=== PATIENT | male | born 1970 | race Caucasian/White ===

== ENCOUNTER 2022-04-07 06:57 | Observation (INO) ==
[~2022-04-07 06:57] MED LIST: Buffered Lidocaine 1% SYRIN 1 ml INTRADERM ONE; Lactated Ringers 1000 ml BAG 1,000 ML IV SCH
[2022-04-07] MEDS ORDERED: ceFAZolin 2 GM PREMIX 2 GM/50 ML BAG ONE (07:11)
[2022-04-07] MEDS ORDERED: Naloxone 0.4 mg VIAL 0.4 mg/ml 1 ml VIAL IV PRN (07:57)
[2022-04-07] MEDS ORDERED: HYDROmorphone 1 MG/1 ML SYRINGE IV PRN (07:57)
[2022-04-07] MEDS ORDERED: Prochlorperazine 5 mg/ml 2 ml VIAL (10 mg) IV PRN (07:57)
[2022-04-07] MEDS ORDERED: ROPIVACAINE 5 MG/ML 30 ML BTL (0.5%) ONE (08:16)
[2022-04-07] MEDS ORDERED: fentaNYL 100 mcg/2 ml 50 MCG/ML VIAL ONE ×2 (08:17→09:13)
[2022-04-07] MEDS ORDERED: Ropivacaine 5 MG/ML 20 ML VIAL 0.5% (100 MG) ONE (08:45)
[2022-04-07] MEDS ORDERED: Lidocaine 2% PF 5 ML VIAL ONE ×2 (09:19→09:50)
[2022-04-07] MEDS ORDERED: Ondansetron 4 mg VIAL 2 MG/ML 2 ml VIAL IV PRN (10:24)
[2022-04-07] MEDS ORDERED: Ondansetron ODT 4 mg TAB 4 MG TAB PO PRN (10:24)
[2022-04-07] MEDS ORDERED: Lactulose 30 ml UDC PO PRN (10:24)
[2022-04-07] MEDS ORDERED: Morphine 2 MG/ML SYRINGE IV PRN (10:24)
[2022-04-07] MEDS ORDERED: Magnesium Hydroxide LIQ 30 ML UDC PO PRN (10:24)
[2022-04-07] MEDS ORDERED: Phenylephrine 40 mcg/mL 10mL (400mcg) SYRINGE ONE (10:41)
[2022-04-07] MEDS ORDERED: Ondansetron 4 mg VIAL 2 MG/ML 2 ml VIAL ONE (10:52)
[2022-04-07] MEDS ORDERED: Dexamethasone IV 4 MG/ML VIAL 1 ml VIAL ONE (10:52)
[2022-04-07] MEDS ORDERED: ceFAZolin 1 GM ADVAN 1 GM in NS 0.9% 50 ML 50 ML IVPB SCH (11:00)
[2022-04-07] MEDS ORDERED: Sodium Citrate/Citric Acid LIQ 15 ML UDC ONE (12:55)
[2022-04-07] MEDS ORDERED: Sodium Citrate/Citric Acid LIQ 15 ML UDC PO ONE (12:57)
[2022-04-07] MEDS: Lactated Ringers 1000 ml BAG 1,000 ML IV SCH (15:28)
[2022-04-07] MEDS ORDERED: Calcium Carb (TUMS) 500 mg CHEW TAB PO PRN (15:33)
[2022-04-07 17:03] LABS: High Sensitivity Troponin 1 Hr 6 pg/mL (<20)
[2022-04-07] MEDS: ceFAZolin 1 GM ADVAN 1 GM in NS 0.9% 50 ML 50 ML IVPB SCH (18:25)
[2022-04-07] MEDS: Magnesium Hydroxide LIQ 30 ML UDC PO SCH (21:24)
[2022-04-08] MEDS: ceFAZolin 1 GM ADVAN 1 GM in NS 0.9% 50 ML 50 ML IVPB SCH ×2 (01:23→09:26)
[2022-04-08] MEDS: Lactated Ringers 1000 ml BAG 1,000 ML IV SCH (01:24)
[2022-04-08 06:16] LABS: Hematocrit 39 % (42-52); Hemoglobin 13.4 g/dL (14.0-18.0); Mean Platelet Volume 8.6 fL (7.4-10.4); Platelet Count 185 10^3/uL (150-450)
[2022-04-08 06:41] LABS: Calcium 8.5 mg/dL (8.6-10.3); Potassium 4.3 mmol/L (3.5-5.0)
[2022-04-08 06:46] LABS: eGFR CKD-EPI 93.3 (>60)
[2022-04-08] MEDS: Magnesium Hydroxide LIQ 30 ML UDC PO SCH (08:11)
[2022-04-08] MEDS ORDERED: Vitamin THERAPEUTIC TAB PO SCH (09:00)
[2022-04-08 09:50] VITALS: BP 136/76
== END 2022-04-08 10:58 | disposition home or self-care (01) ==
LOC: SSU 06:57 → OR 06:57 → EDSTATUS 08:45 → SSU 17:37
PROVIDERS: ADMIT Orthopaedic Surgery Adult Reconstructive Orthopaedic Surgery; ATTEND Orthopaedic Surgery Adult Reconstructive Orthopaedic Surgery

== ENCOUNTER 2022-08-03 08:05 | Observation (INO) ==
[~2022-08-03 08:05] MED LIST changes: -Buffered Lidocaine 1% SYRIN 1 ml INTRADERM ONE; -Lactated Ringers 1000 ml BAG 1,000 ML IV SCH; +NS 0.9% 1000 ml BAG 1,000 ML IV ONE
[2022-08-03] MEDS ORDERED: VERAPAMIL 2.5 MG/ML 2 ML VIAL ** 5 mg/2 ml ONE (09:21)
[2022-08-03] MEDS ORDERED: Midazolam 5 mg/5 ml VIAL 1 mg/ml 5 ml VIAL (5 mg) ONE (09:21)
[2022-08-03] MEDS ORDERED: Heparin 2 UNITS/ML 1000 mls 2,000 ML IV ONE (09:21)
[2022-08-03] MEDS ORDERED: fentaNYL 100 mcg/2 ml 50 MCG/ML VIAL ONE (09:21)
[2022-08-03] MEDS ORDERED: Heparin 1,000 UNIT/ML 10 ml (10,000 UNITS) CATHLAB/DIALYSIS ONE (09:21)
[2022-08-03] MEDS ORDERED: nitroGLYCERIN DRIP 25,000 MCG/250 ML BTL ONE (09:22)
[2022-08-03] MEDS ORDERED: Lidocaine 1% MPF 5 ML VIAL ONE (09:22)
[2022-08-03] MEDS ORDERED: Midazolam 10 mg/10 ml VIAL 1 mg/ml 10 ml VIAL (10 mg) IV SLOW PU ONE (09:24)
[2022-08-03] MEDS ORDERED: fentaNYL 100 mcg/2 ml 50 MCG/ML VIAL IV SLOW PU ONE (09:24)
[2022-08-03] MEDS ORDERED: Bivalirudin 250 MG VIAL ONE ×2 (10:04→10:31)
[2022-08-03] MEDS ORDERED: Atropine 0.1 MG/ML 10 ml SYR (1 mg) ONE (10:20)
[2022-08-03] MEDS ORDERED: Dextrose 50% Syringe 50 ml 25 GM/50 ML SYRINGE IV PUSH PRN (11:25)
[2022-08-03] MEDS ORDERED: NS 0.9% 1000 ml BAG 1,000 ML IV SCH (11:30)
[2022-08-03 13:15] LABS: Hematocrit 45 % (42-52); Hemoglobin 15.4 g/dL (14.0-18.0); Mean Corpuscular HGB Conc 34 g/dL (31-36); Mean Corpuscular Hemoglobin 29 pg (27-31); Mean Corpuscular Volume 84 fL (80-94); Mean Platelet Volume 7.5 fL (7.4-10.4); Platelet Count 185 10^3/uL (150-450); Red Blood Count 5.31 10^6 /uL (4.18-5.48); Red Cell Distribution Width 15 % (10-15); White Blood Count 8.3 10^3/uL (3.5-10.8)
[2022-08-03 13:53] LABS: Albumin 3.4 g/dL (3.2-5.2); Albumin/Globulin Ratio 1.4 (1-3); Calcium 7.9 mg/dL (8.6-10.3); Creatinine, Serum 0.67 mg/dL (0.67-1.17); Globulin 2.5 g/dL (2-4); HDL Cholesterol 30.7 mg/dL; Magnesium 1.8 mg/dL (1.9-2.7); Potassium 3.7 mmol/L (3.5-5.0); Total Bilirubin 0.6 mg/dL (0.2-1.0); Total Protein 5.9 g/dL (6.4-8.9); eGFR CKD-EPI 111.6 (>60)
[2022-08-03 14:18] LABS: Free T4 0.77 ng/dL (0.61-1.12); TSH Ultra Thyroid Stim Horm 0.98 mcIU/mL (0.34-5.60)
[2022-08-04 06:05] LABS: ABS Basophils 0.1 10^3/ul (0-0.2); ABS Eosinophils 0.3 10^3/ul (0-0.6); ABS Lymphocytes 2.2 10^3/ul (1.0-4.8); ABS Monocytes 0.8 10^3/ul (0-0.8); ABS Neutrophils 6.6 10^3/ul (1.5-7.7); Eosinophil % 3.4 %; Hematocrit 48 % (42-52); Hemoglobin 16.4 g/dL (14.0-18.0); Lymphocyte % 21.6 %; Mean Corpuscular HGB Conc 34 g/dL (31-36); Mean Corpuscular Hemoglobin 29 pg (27-31); Mean Corpuscular Volume 85 fL (80-94); Mean Platelet Volume 7.7 fL (7.4-10.4); Nucleated Red Blood Cells % 0.1; Platelet Count 196 10^3/uL (150-450); Red Cell Distribution Width 15 % (10-15); White Blood Count 9.9 10^3/uL (3.5-10.8)
[2022-08-04 06:35] LABS: Calcium 9.1 mg/dL (8.6-10.3); Creatinine, Serum 0.79 mg/dL (0.67-1.17); Potassium 3.8 mmol/L (3.5-5.0); eGFR CKD-EPI 106.2 (>60)
[2022-08-04] MEDS ORDERED: Potassium Chlor 20 meq TAB.ER PO ONE (06:52)
[2022-08-04 07:19] LABS: Magnesium 2.1 mg/dL (1.9-2.7)
[2022-08-04 08:50] VITALS: BP 127/80
[2022-08-04] MEDS ORDERED: Influenza vaccine *QUAD* *2022-23* 0.5 ML SYRINGE IM ONE (09:00)
[2022-08-04] MEDS ORDERED: Pneumococcal Vac 23-Polyvalent IM ONE (09:00)
== END 2022-08-04 10:00 | disposition home or self-care (01) ==
LOC: CHICATH 08:05 → ICU 11:18 → INTOOBSV 11:18
PROVIDERS: ADMIT Internal Medicine Critical Care Medicine; ATTEND Internal Medicine Critical Care Medicine

== ENCOUNTER 2023-09-22 20:15 | Observation (INO) ==
[2023-09-22 20:52] LABS: ABS Basophils 0.1 10^3/uL (0.0-0.1); ABS Eosinophils 0.2 10^3/uL (0.0-0.5); ABS Neutrophils 5.6 10^3/uL (1.5-7.6); ABS Nucleated RBC 0.01 10^3/ul; Eosinophil % 2.6 %; Hematocrit 45.4 % (38-53); Lymphocyte % 22.7 %; Mean Corpuscular Hemoglobin 30.2 pg (27-33); Mean Corpuscular Hgb Conc 35.2 g/dL (31-36); Mean Corpuscular Volume 85.9 fL (80-97); Mean Platelet Volume 7.4 fL (7.5-11.2); Nucleated Red Blood Cells % 0.1 %/100WBC (0.0-0.8); Platelet Count 194 10^3/uL (150-450); Red Blood Count 5.28 10^6/uL (4.06-5.63); Red Cell Distribution Width 13.9 % (12-17); White Blood Count 8.9 10^3/uL (3.6-10.2)
[2023-09-22 20:58] LABS: INR 1.05 (0.83-1.13)
[2023-09-22 21:14] LABS: Creatinine, Serum 0.86 mg/dL (0.67-1.17); Potassium 3.7 mmol/L (3.5-5.0)
[2023-09-22 21:15] LABS: Albumin/Globulin Ratio 1.4 (1-3); Calcium 9.2 mg/dL (8.6-10.3); Globulin 2.9 g/dL (2-4); Total Bilirubin 0.3 mg/dL (0.2-1.0); Total Protein 6.9 g/dL (6.4-8.9); eGFR CKD-EPI 102.9 (>60)
[2023-09-22 22:41] LABS: High Sensitivity Troponin 1 Hr 5 pg/mL (<20)
[2023-09-23] MEDS: Iodixanol (CONTRAST) 320 MG/ML 100 ML SDV IV ONE (00:42)
[2023-09-23] MEDS ORDERED: Dextrose 50% Syringe 50 ml 25 GM/50 ML SYRINGE IV PUSH PRN (06:03)
[2023-09-23] MEDS: Heparin 5000 UNITS/ML 1 mL VIAL SUBCUT SCH (06:12)
[2023-09-23 06:21] LABS: ABS Eosinophils 0.3 10^3/uL (0.0-0.5); ABS Lymphocytes 1.9 10^3/uL (1.0-4.8); ABS Monocytes 0.8 10^3/uL (0.0-1.1); ABS Neutrophils 3.6 10^3/uL (1.5-7.6); ABS Nucleated RBC 0.01 10^3/ul; Eosinophil % 3.9 %; Hematocrit 44.7 % (38-53); Hemoglobin 15.7 g/dL (13.2-16.3); Lymphocyte % 28.3 %; Mean Corpuscular Hemoglobin 30.3 pg (27-33); Mean Corpuscular Hgb Conc 35.2 g/dL (31-36); Mean Corpuscular Volume 86.1 fL (80-97); Mean Platelet Volume 7.5 fL (7.5-11.2); Nucleated Red Blood Cells % 0.1 %/100WBC (0.0-0.8); Platelet Count 182 10^3/uL (150-450); Red Blood Count 5.18 10^6/uL (4.06-5.63); Red Cell Distribution Width 13.9 % (12-17); White Blood Count 6.6 10^3/uL (3.6-10.2)
[2023-09-23 06:22] LABS: Hematocrit 44.6 % (38-53); Hemoglobin 15.8 g/dL (13.2-16.3); Mean Corpuscular Hemoglobin 30.5 pg (27-33); Mean Corpuscular Hgb Conc 35.4 g/dL (31-36); Mean Corpuscular Volume 86.2 fL (80-97); Mean Platelet Volume 7.6 fL (7.5-11.2); Platelet Count 180 10^3/uL (150-450); Red Blood Count 5.17 10^6/uL (4.06-5.63); Red Cell Distribution Width 14.2 % (12-17); White Blood Count 6.5 10^3/uL (3.6-10.2)
[2023-09-23 06:28] LABS: Activated Partial Thrombo Time 28.6 seconds (26.0-38.0); INR 1.06 (0.83-1.13)
[2023-09-23 06:51] LABS: Creatinine, Serum 0.81 mg/dL (0.67-1.17); Potassium 4.1 mmol/L (3.5-5.0); eGFR CKD-EPI 104.8 (>60)
[2023-09-23] MEDS ORDERED: Sulfur Hexaflouride MICROSPHR 25 MG VIAL ONE (08:57)
[2023-09-23] MEDS: Nitroglycerin 0.3 mg TAB SL PRN (12:45)
[2023-09-23] MEDS: Morphine 2 MG/ML SYRINGE IV ONE (13:07)
[2023-09-23] MEDS ORDERED: Ondansetron 4 mg VIAL 2 MG/ML 2 ml VIAL IV PRN (13:22)
[2023-09-23] MEDS: Famotidine IV 10 MG/ML 2 ml VIAL (20 mg) IV SLOW PU ONE (14:25)
[2023-09-23] MEDS: Pantoprazole VIAL 40 MG VIAL IV SCH (14:25)
[2023-09-23] MEDS: Al Hydrox/Mg Hydrox/Simet LIQ 30 ML UDC PO ONE (14:25)
[2023-09-23 14:35] LABS: High Sensitivity Troponin 1 Hr 5 pg/mL (<20)
[2023-09-23 16:36] LABS: C Reactive Protein 3.96 mg/L (<8.01); HDL Cholesterol 31.8 mg/dL
[2023-09-23] MEDS: Sucralfate 1 gm SUSP 1 GM/10 ML UDC PO SCH (17:25)
[2023-09-23 18:18] LABS: Erythrocyte Sed Rate 18 mm/Hr (0-19)
[2023-09-23] MEDS: Enoxaparin 40 MG/0.4 ML SYR SUBCUT SCH (20:59)
[2023-09-24 06:12] LABS: ABS Eosinophils 0.2 10^3/uL (0.0-0.5); ABS Lymphocytes 2.2 10^3/uL (1.0-4.8); ABS Monocytes 0.9 10^3/uL (0.0-1.1); ABS Neutrophils 3.8 10^3/uL (1.5-7.6); ABS Nucleated RBC 0.01 10^3/ul; Eosinophil % 3.3 %; Hematocrit 45.1 % (38-53); Hemoglobin 15.5 g/dL (13.2-16.3); Lymphocyte % 30.7 %; Mean Corpuscular Hemoglobin 29.8 pg (27-33); Mean Corpuscular Hgb Conc 34.4 g/dL (31-36); Mean Corpuscular Volume 86.7 fL (80-97); Nucleated Red Blood Cells % 0.2 %/100WBC (0.0-0.8); Platelet Count 188 10^3/uL (150-450); Red Cell Distribution Width 14.1 % (12-17); White Blood Count 7.1 10^3/uL (3.6-10.2)
[2023-09-24 06:49] LABS: Albumin 3.9 g/dL (3.2-5.2); Albumin/Globulin Ratio 1.4 (1-3); Calcium 8.9 mg/dL (8.6-10.3); Creatinine, Serum 0.89 mg/dL (0.67-1.17); Globulin 2.8 g/dL (2-4); Magnesium 2.3 mg/dL (1.9-2.7); Total Bilirubin 0.4 mg/dL (0.2-1.0); Total Protein 6.7 g/dL (6.4-8.9); eGFR CKD-EPI 101.8 (>60)
[2023-09-24] MEDS ORDERED: Aminophylline 25 MG/ML VIAL ONE (08:13)
[2023-09-24] MEDS ORDERED: Regadenoson 0.4 MG/5 ML SYRINGE ONE (08:13)
[2023-09-24] MEDS: Lactated Ringers 1000 ml BAG 1,000 ML IV ONE (12:03)
[2023-09-24] MEDS ORDERED: VERAPAMIL 2.5 MG/ML 2 ML VIAL ** 5 mg/2 ml ONE (12:06)
[2023-09-24] MEDS ORDERED: Heparin 1,000 UNIT/ML 10 ml (10,000 UNITS) CATHLAB/DIALYSIS ONE (12:06)
[2023-09-24] MEDS ORDERED: Heparin 2 UNITS/ML 1000 mls 2,000 ML IV ONE (12:06)
[2023-09-24] MEDS ORDERED: Iohexol 350 (CONTRAST) 200 ML MDV IV ONE (12:07)
[2023-09-24] MEDS: NS 0.9% 1000 ml BAG 1,000 ML IV SCH ×2 (12:07→14:36)
[2023-09-24] MEDS ORDERED: Lidocaine 1% MPF 5 ML VIAL ONE (12:07)
[2023-09-24] MEDS ORDERED: nitroGLYCERIN DRIP 25,000 MCG/250 ML BTL ONE (12:07)
[2023-09-24] MEDS ORDERED: Midazolam 5 mg/5 ml VIAL 1 mg/ml 5 ml VIAL (5 mg) ONE (13:38)
[2023-09-24] MEDS ORDERED: fentaNYL 100 mcg/2 ml 50 MCG/ML VIAL ONE (13:38)
[2023-09-24] MEDS ORDERED: Heparin 2 UNITS/ML 1000 mls 1,000 ML IV ONE (13:39)
[2023-09-25 05:32] LABS: ABS Eosinophils 0.2 10^3/uL (0.0-0.5); ABS Lymphocytes 2.4 10^3/uL (1.0-4.8); ABS Monocytes 0.8 10^3/uL (0.0-1.1); ABS Neutrophils 4.2 10^3/uL (1.5-7.6); ABS Nucleated RBC 0.01 10^3/ul; Eosinophil % 2.7 %; Hematocrit 44.4 % (38-53); Hemoglobin 15.5 g/dL (13.2-16.3); Lymphocyte % 31.6 %; Mean Corpuscular Hemoglobin 30.3 pg (27-33); Mean Corpuscular Volume 86.7 fL (80-97); Mean Platelet Volume 7.5 fL (7.5-11.2); Nucleated Red Blood Cells % 0.2 %/100WBC (0.0-0.8); Platelet Count 193 10^3/uL (150-450); Red Blood Count 5.12 10^6/uL (4.06-5.63); White Blood Count 7.6 10^3/uL (3.6-10.2)
[2023-09-25 05:48] LABS: Calcium 8.8 mg/dL (8.6-10.3); Creatinine, Serum 0.84 mg/dL (0.67-1.17); Magnesium 2.2 mg/dL (1.9-2.7); Phosphorus 4.2 mg/dL (2.5-5.0); Potassium 3.9 mmol/L (3.5-5.0); eGFR CKD-EPI 103.6 (>60)
[2023-09-25] MEDS ORDERED: fentaNYL 100 mcg/2 ml 50 MCG/ML VIAL ONE (08:36)
[2023-09-25] MEDS ORDERED: Midazolam 10 mg/10 ml VIAL 1 mg/ml 10 ml VIAL (10 mg) ONE (08:36)
[2023-09-25 10:46] VITALS: BP 128/92
[2023-09-25] MEDS ORDERED: Lidocaine 2% JELLY 6 ML Topical TOPICAL ONE (11:32)
[2023-09-25] MEDS ORDERED: Flumazenil 0.5 mg/5 ml 0.1 MG/ML 5 ml VIAL IV PRN (11:32)
[2023-09-25] MEDS ORDERED: Midazolam 10 mg/10 ml VIAL 1 mg/ml 10 ml VIAL (10 mg) IV SLOW PU ONE (11:32)
[2023-09-25] MEDS ORDERED: Naloxone 0.4 mg VIAL 0.4 mg/ml 1 ml VIAL IV PUSH PRN (11:32)
[2023-09-25] MEDS ORDERED: Lactated Ringers 1000 ml BAG 1,000 ML IV ONE (11:32)
[2023-09-25] MEDS ORDERED: Ondansetron 4 mg VIAL 2 MG/ML 2 ml VIAL IV ONE (11:32)
[2023-09-25] MEDS ORDERED: fentaNYL 100 mcg/2 ml 50 MCG/ML VIAL IV SLOW PU ONE (11:32)
== END 2023-09-25 13:05 | disposition home or self-care (01) ==
LOC: EDHOLD 20:15 → ED 20:15 → SUATTDRO 09-23 03:13 → MEDTELE 09-23 07:02
PROVIDERS: ADMIT Internal Medicine; ATTEND Hospitalist